=== PATIENT | female | born 1990 | race Caucasian/White ===

== ENCOUNTER 2024-03-28 07:14 | Outpatient (CLI) | payer OTHER | END 2024-03-28 07:15 | disposition home or self-care (01) | LOC: ULT 07:14 | PROVIDERS: ATTEND Student in an Organized Health Care Education/Training Program | DX: R79.89 Other specified abnormal findings of blood chemistry (principal); K76.0 Fatty (change of) liver, not elsewhere classified | CPT/HCPCS: 76700 ==

== ENCOUNTER 2024-05-15 10:42 | Outpatient (CLI) | payer OTHER | END 2024-05-15 10:43 | disposition home or self-care (01) | LOC: RAD 10:42 | PROVIDERS: ATTEND Student in an Organized Health Care Education/Training Program | DX: M43.8X6 Other specified deforming dorsopathies, lumbar region (principal) | CPT/HCPCS: 72072 ==